=== PATIENT | male | born 1950 | race Caucasian/White ===

== ENCOUNTER 2016-05-17 09:44 | Day surgery (SDC) | payer MEDICARE, BC ==
[2016-05-17] MEDS ORDERED: PROPOFOL 10 MG/ML VIAL IV ONE (14:00)
[2016-05-17] MEDS ORDERED: MIDAZOLAM HCL 2MG/2ML VIAL IV ONE (14:00)
[2016-05-17] MEDS ORDERED: LIDOCAINE 2% MDV (20MG/ML) 20ML VIAL IV ONE (14:00)
--- NOTE | 2016-05-21 11:36 | Operative Note ---
DATE OF SURGERY: 05/17/16 OPERATION: Esophagogastroduodenoscopy with multiple biopsies. REFERRING PHYSICIAN: Karin Camp M.D. and Jennifer Randhawa P.A.-C. INDICATION: Patient with no known history of long-segment Mckeon's esophagus. 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 He returns at this time for repeat biopsies. Clinically he does well provided he continues with acid blockade therapy. He does have a prior history of chewing tobacco for years as well. He stopped this five years ago. ANESTHESIA: Intravenous sedation was administered by the Department of Anesthesiology and included Diprivan titrated to effect. PROCEDURE: Following informed consent from this alert individual, including a discussion of the risks and benefits of the procedure and an opportunity for the patient to ask questions, the patient was in the left lateral decubitus position. The Olympus [id number] video endoscope was inserted into the esophagus without resistance. The most cervical esophagus had a normal appearance with normal folds and distensibility. There was clear demarcation at approximately 23 cm from the incisors where the Mckeon's epithelium began. The mucosa throughout the Mckeon's-appearing esophagus was smooth without nodularity or irregularity. The Mckeon's epithelium extended to approximately 37 cm from the incisors. Below this was a 3.0 to 4.0 cm hiatal hernia which was free from mucosal changes. The subdiaphragmatic stomach was entered and was found to be unremarkable. The pylorus was patent. The duodenal bulb, sweep, and descending duodenum were examined in a serial fashion and were found to be normal. The instrument was then withdrawn back into the body of the stomach. Retroflexion was accomplished following air insufflation and failed to demonstrate any additional changes. Again, a hiatal hernia was noted. The endoscope was then straightened and withdrawn back to the distal esophagus where biopsies were taken from four quadrants every 1.0 to 2.0 cm between 30 and 37 cm from the incisors. A second set of biopsies was taken from four quadrants every 1.0 to 2.0 cm from 26 to 30 cm from the incisors. A final set of biopsies was taken from four quadrants every 1.0 cm from 23 to 26 cm from the incisors. Again, no nodularity was noted. No irregular-appearing mucosa or ulcerations were noted. The endoscope was withdrawn. The patient tolerated the procedure well and was returned to the recovery area in stable condition. IMPRESSION: 1. 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 Biopsies were taken from throughout the esophagus as noted above in four quadrants in separate segments. 2. A hiatal hernia. RECOMMENDATIONS: The patient will continue on acid blockade therapy. Further recommendations will be forthcoming pending the results of the biopsies obtained today. JASPAL HUBBARD cc: Waleska Chen P.A.-C. Job Number: [id number] MTDD
== END 2016-05-17 12:19 | disposition home or self-care (01) ==
LOC: HOP 09:44
PROVIDERS: ATTEND Internal Medicine Gastroenterology
DX: K22.10 Ulcer of esophagus without bleeding (principal); K44.9 Diaphragmatic hernia without obstruction or gangrene

== ENCOUNTER 2017-06-20 09:30 | Day surgery (SDC) | payer MEDICARE, BC ==
[2017-06-20] MEDS ORDERED: LIDOCAINE 2% MDV (20MG/ML) 20ML VIAL IV ONE (09:31)
[2017-06-20] MEDS ORDERED: PROPOFOL 10 MG/ML VIAL IV ONE (09:31)
[2017-06-20] MEDS ORDERED: FENTANYL PF 100MCG/2ML VIAL IV ONE (09:31)
--- NOTE | 2017-06-21 10:30 | Operative Note ---
DATE OF SURGERY: 06/20/2017 OPERATION: ESOPHAGOGASTRODUODENOSCOPY with multiple biopsies. INDICATION: History of long-segment Mckeon's esophagus. The patient returns at this time for surveillance. Continues with Prilosec 20 mg daily. He denies any current complaints. ANESTHESIA: Intravenous sedation was administered by the department of anesthesiology and included Diprivan titrated to effect. PROCEDURE: Following informed consent from this alert individual, including a discussion of the risks and benefits of the procedure and an opportunity for the patient to ask questions, the patient was in the left lateral decubitus position. The Olympus [id number] video endoscope was inserted into the esophagus without resistance. The proximal esophagus had a normal appearance with normal folds and distensibility. There was a transition noted to a Mckeon's appearing epithelium which was smooth and well defined at 28 cm from the incisors. The remainder of the esophagus was smooth without nodularity, ulcerations, or apparent mucosal changes other than the Mckeon's appearing epithelium. The Mckeon's extended to a hiatal hernia measuring 2-3 cm in size. The hernia sac itself was free from changes. The subdiaphragmatic stomach was entered and found to be unremarkable. The pylorus was patent. The duodenal bulb, sweep and descending duodenum were examined in a serial fashion and found to be normal. The instrument was then withdrawn back into the body of the stomach. Retroflexion accomplished following air insufflation again revealed the hiatal hernia. The endoscope was then straightened and withdrawn back to the distal esophagus. Biopsies were taken in 4 separate jars. The first had biopsies from between 34-37 cm from the incisors, second jar 31-34 cm, third jar 28-31 cm, and the final jar from 24-28 cm. Multiple biopsies taken throughout the esophagus in each segment. After biopsy, the endoscope was then withdrawn. The patient tolerated the procedure well and was returned to the recovery area in stable condition. IMPRESSION: 1. Long-segment Mckeon's esophagus extending 13 cm in length beginning at 24 cm from the incisors and extending to 37 cm from the incisors. Biopsies taken throughout as described above. 2. A 2-3 cm hiatal hernia. RECOMMENDATION: The patient will continue on acid blockade therapy daily. Further recommendations forthcoming pending results of biopsy obtained today. Followup will be with DANIS Flores. As always, thank you for allowing me to participate in the care of your patient. CC: DANIS Flores
== END 2017-06-20 11:37 | disposition home or self-care (01) ==
LOC: HOP 09:30
PROVIDERS: ATTEND Internal Medicine Gastroenterology
DX: K22.70 Barrett's esophagus without dysplasia (principal); K44.9 Diaphragmatic hernia without obstruction or gangrene; K21.9 Gastro-esophageal reflux disease without esophagitis
CPT/HCPCS: 43235; 00731; 88305; 88313; J3010